=== PATIENT | male | born 1975 | race African-American/Black ===

== ENCOUNTER 2022-09-18 23:15 | Emergency (ER) | payer MEDICAID ==
[~2022-09-18] VITALS: Ht 167.6 cm; Wt 98.0 kg
[2022-09-18 23:31] VITALS: BP 167/102; PULSE 94
== END 2022-09-18 23:36 | disposition left against medical advice (07) ==
LOC: ER 23:26
DX: Z53.21 Procedure and treatment not carried out due to patient leaving prior to being seen by health care provider (principal)
CPT/HCPCS: 99281